=== PATIENT | female | born 2005 | race Two or more races ===

== ENCOUNTER 2025-05-10 18:22 | Emergency (ER) | payer MEDICAID, SELFPAY ==
--- NOTE | 2025-05-10 19:43 | XR_ITS ---
Examination: Complete OB ultrasound, less than 14 weeks, transabdominal Date and time of exam: May 10, 2025 1946 hours INDICATIONS: Vaginal bleeding beginning one week ago Technique: Obstetrical ultrasound images less than 14 weeks performed via transabdominal imaging Findings: Uterus 7.6 cm intrauterine gestational sac 11 mm corresponds to 5 week 6 day gestational age No pole, no cardiac activity Right ovary 3.3 cm arterial flow Left ovary 2.7 cm arterial flow IMPRESSION: Empty intrauterine gestational sac, no pole, no cardiac activity, corresponding to 5 week 6 day gestational age Recommend follow-up transvaginal pelvic sonography to assess for viability
[2025-05-10 19:44] VITALS: BP 129/79; PULSE 78; RESP 19; TEMP 37; O2SAT 100
[2025-05-10 20:35] LABS: Collection Type, Urine Voided
[2025-05-10 20:51] LABS: Bilirubin,Urine Negative (Negative); Blood,Urine Trace (Negative); Clarity,Urine Clear (Clear/Hazy); Color,Urine Lt-Yellow (Lt Yel-Yel); Glucose, Urine Trace (Negative); Ketones,Urine Negative (Negative); Leukocyte Esterase,Urine Negative (Negative); Nitrite,Urine Negative (Negative); PH,Urine 6.0 (5.0-7.0); Protein,Urine Negative (Neg - Trace); RBC,Urine < 1 /hpf (0-3); Specific Gravity,Urine 1.025 (1.001-1.035); Squamous Epithelial Cell,Urine 1 /hpf (0-5); Urobilinogen,Urine Negative mg/dL (0.0-1.0); WBC,Urine 1 /hpf (0-5)
[2025-05-10 20:55] LABS: Basophils # (Auto) 0.0 Thou/mm3 (0.0-0.2); Basophils % (Auto) 0 % (0-2.5); Eosinophils # (Auto) 0.4 Thou/mm3 (0.0-0.5); Eosinophils % (Auto) 5 % (0-10); Hematocrit 29.6 % (36.0-46.0); Hemoglobin 9.0 g/dL (12.0-16.0); Immature Granulocytes Auto 0.01 Thou/mm3 (0.00-0.00); Lymphocytes # (Auto) 3.1 Thou/mm3 (1.0-4.8); Lymphocytes % (Auto) 38 % (10-50); Mean Corpuscular HGB Conc 30.4 g/dl (31.0-37.0); Mean Corpuscular Hemoglobin 23.9 pg (25.0-35.0); Mean Corpuscular Volume 79 fL (80-100); Monocytes # (Auto) 0.6 Thou/mm3 (0.0-0.8); Monocytes % (Auto) 8 % (0-12); Neutrophils # (Auto) 4.0 Thou/mm3 (1.8-7.7); Neutrophils % (Auto) 49 % (37-80); Nucleated Red Blood Cell # 0.00 Thou/mm3 (0.00-0.00); Nucleated Red Blood Cell % 0 /100 WBC (0); Platelet Count 283 Thou/mm3 (140-440); RDW Standard Deviation 44.7 fL (36.4-46.3); Red Blood Count 3.77 Miln/mm3 (4.00-5.20); White Blood Count 8.1 Thou/mm3 (4.5-11.0)
[2025-05-10 21:15] LABS: Alanine Aminotransferase < 7 U/L (10-49); Albumin, Serum 4.4 gm/dL (3.5-5.0); Albumin/Globulin Ratio 1.6 (1.2-2.2); Alkaline Phosphatase 56 U/L (46-116); Anion Gap 8 (7-16); Aspartate Amino Transferase 16 U/L (0-34); BUN/Creatinine Ratio 7 Ratio (12-20); Bilirubin,Total 0.4 mg/dL (0.3-1.2); Blood Urea Nitrogen < 5 mg/dL (9-23); Calcium 9.0 mg/dL (8.3-10.6); Calcium (Corrected) 9.0 mg/dL (8.5-10.1); Carbon Dioxide 23.2 mMol/L (20.0-31.0); Chloride 109 mMol/L (98-107); Creatinine (Component) 0.7 mg/dL (0.6-1.3); Globulin 2.7 gm/dL (2.3-3.5); Glucose 104 mg/dL (74-106); Osmolality,Calculated 276 (275-295); Potassium 3.4 mMol/L (3.4-5.1); Sodium 140 mMol/L (136-145); Total Protein 7.1 gm/dL (5.7-8.2); eGFR > 60 See Note
[2025-05-10 21:46] LABS: Beta HCG,Quantitative 22164 mIU/mL (<5.0)
--- NOTE | 2025-05-10 23:23 | PD.EDPREG ---
ED OB Contraction Preg RMI/HPI General Chief complaint: Vaginal Bleeding Stated complaint: VAGINAL BLEEDING, PREG 4WKS Time Seen by Provider: 05/10/25 18:25 Arrival date/time: 05/10/25 18:22 This is a case of a 19-year-old female who came in in the emergency room due to vaginal bleeding today patient is 4 weeks LMP was March 28, 2025 2 para 1 patient denies any pelvic pain nausea or vomiting patient took test and positive no checkup. Limitations: no limitations Related Data Home Medications ?Medication ?Instructions ?Recorded ?Confirmed sertraline 25 mg tablet 25 mg PO DAILY 01/21/24 01/21/24 Previous Rx's ?Medication ?Instructions ?Recorded docusate sodium 100 mg capsule 100 mg PO BID #40 caps 01/21/24 (Colace) hydrocodone 5 mg-acetaminophen 325 1 tab PO Q6H PRN pain (scale score 01/21/24 mg tablet 7-10) #15 tabs ibuprofen 600 mg tablet 600 mg PO Q8H PRN pain (scale 01/21/24 score 4-6) #15 tabs vit 122-ferrous fumarate 1 tab PO DAILY #60 tabs 05/10/25 27 mg iron-folic acid 800 mcg tablet ( Multi) Allergies Allergy/AdvReac Type Severity Reaction Status Date / Time No Known Allergies Allergy Verified 05/10/25 18:25 Review of Systems Review of Systems Systems Reviewed: All systems reviewed, normal except as documented Constitutional Constitutional: Reports system reviewed and no additional complaints, except as documented and Reports as per HPI Cardiovascular Cardiovascular: Reports system reviewed and no additional complaints, except as documented and Reports as per HPI Respiratory Respiratory: Reports system reviewed and no additional complaints, except as documented and Reports as per HPI Gastrointestinal Gastrointestinal: Reports system reviewed and no additional complaints, except as documented, Reports as per HPI, Denies abdominal pain, Denies nausea and Denies vomiting Genitourinary Genitourinary: Reports system reviewed and no additional complaints, except as documented, Reports abnormal vaginal bleeding, Denies dysuria and Denies hematuria Neurologic Neurologic: Reports system reviewed and no additional complaints, except as documented and Reports as per HPI Past Medical History Past Medical History NEUROLOGIC: Negative Neurological Disorders or Seizures CARDIAC: Negative Cardiac Disorders or Congestive Heart Failure RESPIRATORY: Negative Chronic Obstructive Pulmonary Disease (COPD) GASTROINTESTINAL: Positive Gastrointestinal Disorders and Gall Bladder Disease GENITOURINARY: Negative Genitourinary Disorders or Renal Disease REPRODUCTIVE: Positive Previous Pregnancies MUSCULOSKELETAL: Negative Musculoskeletal Disorders ENDOCRINE: Negative Endocrine Disorders, Diabetes Mellitus Type 1 or Diabetes Mellitus Type 2 HEMATOLOGIC: Positive Blood Disorders and Anemia PSYCHO/SOCIAL: Positive Depression (taking meds) OTHER HISTORY: Negative Hospitalization, Autoimmune Disease, Shingles, Blood Transfusions, Blood Transfusion Reaction, Anesthesia Reactions or Cancer Family History FAMILY HISTORY: Positive Family Surgery; Negative Family Psychiatric Problems, Family Respiratory Disorders, Family Cardiac Disorders, Family Gastrointestinal Problems, Family Cancer or Family Anesthesia Reaction Social History SMOKING STATUS: Never smoker SUBSTANCE USE: does not use ED Exam General Limitations: Present no limitations General appearance: Present alert, in no apparent distress and other (Child is awake alert oriented not in distress nontoxic looking well-hydrated well-nourished) Head Head exam: Present atraumatic, normocephalic and normal inspection Eye Eye exam: Present normal appearance, PERRL and EOMI ENT ENT exam: Present normal exam, normal oropharynx and mucous membranes moist Neck Neck exam: Present normal inspection, full ROM and trachea midline; Absent tenderness, meningismus or lymphadenopathy Chest Chest inspection: Present normal inspection and symmetric chest wall rise; Absent tenderness Respiratory Respiratory exam: Present normal lung sounds bilaterally; Absent respiratory distress, wheezes, stridor, accessory muscle use or prolonged expiratory phase Cardiovascular Cardiovascular exam: Present regular rate, normal rhythm and normal heart sounds; Absent bradycardia, tachycardia, irregular rhythm, systolic murmur or diastolic murmur Abdominal Exam Abdominal exam: Present soft and normal bowel sounds; Absent distention, tenderness, guarding, rebound, rigidity, diminished bowel sounds, hyperactive bowel sounds, hypoactive bowel sounds or organomegaly Extremities Exam Extremities exam: Present normal inspection and full ROM Back Exam Back exam: Present normal inspection and full ROM Neurological Exam Neurological exam: Present alert, oriented X3, CN II-XII intact, normal gait and reflexes normal; Absent motor sensory deficit Psychiatric Psychiatric exam: Present normal affect and normal mood Skin Skin exam: Present warm, dry, intact and normal color Course Quality Measures none Orders Category Date Time Status US OB <= 14 weeks fetus Stat Exams 05/10/25 19:43 Completed ABO/RH Type Stat Lab 05/10/25 20:30 Completed Beta HCG,Quantitative Stat Lab 05/10/25 20:30 Completed CBC Stat Lab 05/10/25 20:30 Completed CMP [Comprehensive Metabolic Panel] Stat Lab 05/10/25 20:30 Completed Urinalysis Stat Lab 05/10/25 20:29 Completed Vital Signs Vital signs: Vital Signs Temperature 98.6 F 05/10/25 19:44 Pulse Rate 78 05/10/25 19:44 Respiratory Rate 19 05/10/25 19:44 Blood Pressure 129/79 05/10/25 19:44 Pulse Oximetry (%) 100 05/10/25 19:44 Oxygen Delivery Method Room Air 05/10/25 19:44 Patient oxygen saturation is 100% in room air OB/Uterine Contractions MDM Narrative MDM Narrative:: This is a case of a 19-year-old female who came in in the emergency room due to vaginal bleeding today patient is 4 weeks LMP was March 28, 2025 2 para 1 patient denies any pelvic pain nausea or vomiting patient took test and positive no checkup. Physical examination patient is awake alert oriented not in distress nontoxic looking well-hydrated well-nourished abdominal exam is benign no guarding no rebound no rigidity negative tenderness patient is not pale excellent skin turgor the rest of the physical examination and neurological exam is normal and unremarkable blood test showed no leukocytosis but with anemia hemoglobin of 9 patient already knew that she is anemic and she is already currently taking iron medication patient kidney and liver function is normal no electrolyte imbalance patient beta-hCG [id number] O+ urinalysis is normal ultrasound showed a empty intrauterine sac possible 5 weeks at this point based on my physical examination and history patient symptoms suggestive of threatened in early she was advised to return in the emergency room in 2 days for repeat pelvic ultrasound and beta-hCG the importance to see an OB internet marketing coordinator was also discussed with the patient patient will continue the multivitamins and iron for any worsening symptoms or any emergent concern return precaution in the ER was advised Patient was discharged with comfortable condition walking with stable gait. Patient verbalized no further complains explained diagnosis and answered patient question. Patient is comfortable with the proposed management plan including the need to follow up with his/her primary care physician and any specialist if applicable Discussed patient for any urgent condition or worsening sx, He/She needed to go to emergency room immediately or call 911. Patient acknowledge the responsibility to follow up as instructed and to monitor her/his symptoms. For any persistence of the symptoms for more than 3-5 days return precaution advised. Discussed the result of the test and was given printed discharge instruction Patient data External records reviewed:: [facility] previous records Clinical information provided by:: patient Social determinants that could affect healthcare access:: none (None) Patient has the following chronic illnesses:: None How is presenting disease/condition affected by chronic disease/condition?: no chronic disease Evaluation data The following diagnostics were reviewed and interpreted by me:: lab results and radiology exam(s) Lab and/or radiology exams considered but not ordered:: Reviewed Interpretation Summary: Reviewed Medications / Prescriptions Medications or Prescriptions considered but not ordered:: Given Medication administrations:: Given Consultations Consultation(s) initiated? (list below): No Diagnosis OB Contractions Differential Diagnosis: other (Threatened in early ) Most likely diagnosis given after review of the tests above:: Threatened Admission Indicated Admission indicated?: not indicated Explain why admission is indicated or not indicated:: Not indicated Admission Request Was there a request for admission?: No Admission Attestation Admission request attestation: Not indicated Disposition Plan Disposition Plan: Discharge Discharge Attestation Discharge Attestation: The patient and all family members were given an opportunity to ask questions and understood the discharge instructions. Discharge instructions specifically effects, indications for sooner follow up or return to the emergency department, and the expected course of current diagnosis. Patient condition: Stable Discharge Plan Plan Patient Disposition: HOME (Self Care) Patient condition on transfer: Stable Prescriptions/Referrals Prescriptions/Med Rec: New Multi 27-800 mg-mcg tablet 1 tab PO DAILY Qty: 60 0RF No Action sertraline 25 mg tablet 25 mg PO DAILY Patient Comments: TAKE 1 TABLET BY MOUTH EVERY DAY docusate sodium [Colace] 100 mg capsule 100 mg PO BID Qty: 40 0RF hydrocodone-acetaminophen 5-325 mg tablet 1 tab PO Q6H MDD 4 PRN (Reason: pain (scale score 7-10)) Qty: 15 0RF ibuprofen 600 mg tablet 600 mg PO Q8H PRN (Reason: pain (scale score 4-6)) Qty: 15 0RF Referrals: Phoebe Menendez FNP [Primary Care Provider] - In 1 week Problem List Clinical Impression: Threatened in early , Anemia Patient/Caregiver Discharge Instructions Education Materials: Anemia, Understanding Miscarriage ... Additional Instructions: Follow-up with your primary care physician in 2 days for reevaluation and to be referred to OB internet marketing coordinator for further evaluation and treatment of threatened in early and for your check you also need to see synthetic resin operator for your anemia continue your vitamins with iron and take it daily increase water intake keep hydrated pelvic rest no sex until cleared by your primary care physician is advised worsening symptoms or any emergent concern call 911 or go to the nearest emergency room return to the emergency room in 2 days for reevaluation if not seen by the OB internet marketing coordinator for repeat beta-hCG and pelvic ultrasound Print Language: Andorran Stand Alone Forms: Radha Award Info., Patient Portal Info Letter PA/IT BUSINESS SYSTEMS ANALYST Supervising Physician PA/IT BUSINESS SYSTEMS ANALYST Supervising Physician: Dr. Eligio Carter
== END 2025-05-10 23:36 | disposition home or self-care (01) ==
PROVIDERS: Nurse Practitioner Family; Emergency Provider Emergency Medicine; PCP Registered Nurse Community Health
DX: O20.0 Threatened abortion (principal); Z3A.01 Less than 8 weeks gestation of pregnancy
CPT/HCPCS: 36415; 76801; 80053; 81001; 84702; 85025; 86900; 86901; 99284

== ENCOUNTER 2025-05-11 13:03 | Outpatient (AMB) | payer MEDICAID, SELFPAY ==
[2025-05-11 13:18] VITALS: BP 118/77; PULSE 75; RESP 16; TEMP 36.9; O2SAT 97; BMI 30.5
--- NOTE | 2025-05-11 13:18 | GYNCLNT_ITS ---
Vital Signs 05/11/25 13:18 Height 1.57 m Height Method Stated Weight 75.353 kg Weight Measurement Method Standing Scale BMI 30.5 BP 118/77 Blood Pressure Source Automatic Cuff Blood Pressure Location Left Upper Arm Position Sitting Respiration 16 Pulse 75 Pulse Source Monitor Temp 98.4 F Temp Source Oral Pulse Oximetry (%) 97 Oxygen Delivery Method Room Air Allergies/Home Meds Allergies & Medications Allergies No Known Allergies Allergy (Verified 05/11/25 13:20) Medication Reconciliation docusate sodium 100 mg capsule (Colace) 100 mg PO BID #40 caps 01/21/24 [Rx Confirmed 05/11/25] hydrocodone 5 mg-acetaminophen 325 mg tablet 1 tab PO Q6H PRN pain (scale score 7-10) #15 tabs 01/21/24 [Rx Confirmed 05/11/25] ibuprofen 600 mg tablet 600 mg PO Q8H PRN pain (scale score 4-6) #15 tabs 01/21/24 [Rx Confirmed 05/11/25] sertraline 25 mg tablet 25 mg PO DAILY 01/21/24 [History Confirmed 05/11/25] vit 122-ferrous fumarate 27 mg iron-folic acid 800 mcg tablet ( Multi) 1 tab PO DAILY #60 tabs 05/10/25 [Rx Confirmed 05/11/25] Intake Visit Data Collection New Patient or Established: Established Patient (seen at [facility] within 3 years) Reason for Visit:: EMERGENCY ROOM FOLLOW UP Seen by Clinical Staff ONLY (RN/MA): No Manager Massage Department Required: No Do You Feel Safe at Home: Yes Authorities Contacted: N/A PCP or OBGYN visit in last 3 months: Yes Hx Now: Yes Are you currently on any form of Control: No Last menstrual period: 03/28/25 Pain Present Currently: No Pain scale:: 0 Smoking Status Smoking Status: Never smoker Chain Person history Chain Person History Menstrual regularity: regular Flow: normal Monthly: Yes How many days does period last: 4 Age at menarche: 10 Currently sexually active: Yes [employer]: Past Medical History Past Medical History: No Hx Neurological Disorders, No Hx Cardiac Disorders, No Hx Cancer, Yes Hx Blood Disorders, Yes Hx Anemia, Yes Hx Gastrointestinal Disorders, No Hx Renal Disease, No Hx Diabetes Mellitus Type 1 and No Hx Diabetes Mellitus Type 2 Questionnaires Covid-19 Vaccine Questionnaire Has patient been vacinated for Covid-19 Have you been vacinated for Covid-19: Yes PHQ-9 PHQ-2 Over the last 2 weeks, how often have you been bothered by any of the following problems? 1. Little interest or pleasure in doing things: not at all 2. Feeling down, depressed, or hopeless: not at all Total score: 0 PHQ-9 3. Trouble falling or staying asleep, or sleeping too much: Not at all 4. Feeling tired or having little energy: Not at all 5. Poor appetite or overeating: Not at all 6. Feeling bad about yourself - or that you are a failure or have let yourself or your family down: Not at all 7. Trouble concentrating on things, such as reading the newspaper or watching television: Not at all 8. Moving or speaking so slowly that other people could have noticed? - Or the opposite - being so fidgety or restless that you have been moving around a lot more than usual: not at all 9. Thoughts that you would be better off or of hurting yourself in some way: Not at all Total score: 0 Source: Developed by Drs. Levar Mendoza, Dipti Narvaez, Cristiano Murdock and colleagues, with an educational alexander from [employer]. Depression screen completed yes Social History Living Situation History Housing: House Tobacco History Smoking Status: Never smoker Alcohol History Alcohol Intake: Never Domestic Abuse History Do You Feel Safe at Home: Yes History of Present Illness HPI Narrative Lili Zurita, a female patient, presents for ER follow-up after being seen yesterday for vaginal bleeding in early . Her last menstrual period was on March 28. The patient reports that she experienced vaginal bleeding yesterday, which has since slowed down to spotting today. She states that the bleeding stopped yesterday, and she is now only experiencing light spotting. The patient has not established care with an OB-TRUCK DR[employer] and is in the process of obtaining a referral. She mentions doing a lot of walking at work, which may be a concern given her current condition. Medical History: - Emergency room visit yesterday for vaginal bleeding in early Obstetric History: - GPAL: A0 L0 - Current : - Gestational age: 5 weeks 6 days by ultrasound - Last menstrual period: March 28, 2025 Social History: - Occupation: Patient works at a job that involves a lot of walking - ultrasound (05-10-2025): Empty intrauterine gestational sac, no pole, no cardiac activity, gestational age 5 weeks and 6 days - Serum hCG (05-10-2025): [id number] Exam General General Appearance: alert, in no apparent distress and healthy appearing Head Head exam: atraumatic Neck Neck exam: Present normal inspection and trachea midline Chest Chest inspection: Present normal inspection and symmetric chest wall rise External exam: Present normal external exam; Absent tenderness Neuro Neurological exam: Present oriented X3 Psych Psychiatric exam: Present normal affect and normal mood Office Procedures OB Clinic LOC & Office Proc's Nursing/Assessment Patient Status: Established Patient OB Clinic Nursing Assessment: Medication Reconciliation, Update PMH in EMR and Vital Signs OB Clinic Coordination of Care: Complex Care and Chronic Disease 1-5, Education Complex Pt/Fam, Consent,records obtained, informed consent, Lab and Imaging orders, Results/Orders obtained and Staff clarify orders Established Patient Charge Established Patient Point Assignment: 110 Established Patient Point Charge: EP Level 3 (80-115) Assessment & Plan Diagnosis / Problem List (1) Anemia: Status: Acute (2) Threatened in early : Status: Acute Plan Early with vaginal bleeding Assessment: Patient presented to ER yesterday with vaginal bleeding in early . [place] [address] and ultrasound revealed an empty intrauterine gestational sac with no pole or cardiac activity, corresponding to 5 weeks and 6 days gestation. Currently, patient reports decreased bleeding, now only spotting. Differential diagnosis includes normal early with bleeding vs. early miscarriage. Unable to definitively diagnose at this time due to early gestational age. Plan: - Repeat serum hCG in 72 hours (on ) - If hCG rising, schedule follow-up ultrasound - If hCG declining, diagnose as miscarriage - Provide work note for one week of leave (Saturday through saturday, return to work next Saturday) - Follow up with results on Saturday
== END 2025-05-11 13:45 | disposition home or self-care (01) ==
LOC: HODSOBC 13:03
PROVIDERS: PCP Registered Nurse Community Health; Referring Provider Registered Nurse Community Health; Supervising Provider Obstetrics & Gynecology; Visit Provider Obstetrics & Gynecology
DX: O20.0 Threatened abortion (principal); O99.011 Anemia complicating pregnancy, first trimester; Z3A.01 Less than 8 weeks gestation of pregnancy
CPT/HCPCS: 99213; G0463

== ENCOUNTER → 2025-06-04 | Outpatient (CLI) | payer MEDICAID, SELFPAY ==
--- NOTE | 2025-06-04 | XR_ITS ---
Examination: Complete OB ultrasound, less than 14 weeks, transabdominal Date and time of exam: June 04, 2025 1354 hours INDICATIONS: Early by history, empty intrauterine gestational sac no pole and no cardiac activity on ultrasound May 10, 2025 Technique: Obstetrical ultrasound images less than 14 weeks performed via transabdominal imaging Findings: A normal shaped single intrauterine gestation is present in the uterus. CRL 2.4 cm corresponds to 9 weeks 1 day gestational age Cardiac motion 169 bpm, subchorionic hemorrhage 23 x 20 x 15 mm Ultrasonographic survey of visible and placental structures unremarkable. Amniotic fluid volume appears appropriate for this estimated gestational age. Right ovary 3.7 cm arterial flow 18 x 20 mm cyst Left ovary 2.6 cm arterial flow IMPRESSION: Viable intrauterine gestation 9 weeks 1 day, consider short-term follow-up given the subchorionic hemorrhage.
== END | disposition home or self-care (01) ==
PROVIDERS: PCP Student in an Organized Health Care Education/Training Program; Referring Provider Obstetrics & Gynecology; Visit Provider Obstetrics & Gynecology
DX: O26.849 Uterine size-date discrepancy, unspecified trimester (principal); Z3A.09 9 weeks gestation of pregnancy
CPT/HCPCS: 76801

== ENCOUNTER 2025-06-29 14:28 | Outpatient (AMB) | payer MEDICAID, SELFPAY ==
[2025-06-29 14:54] VITALS: BP 126/84; PULSE 93; RESP 18; TEMP 36.5; O2SAT 98; BMI 29.9
--- NOTE | 2025-06-29 14:54 | AMB.OBINITIA ---
Vital Signs 06/29/25 14:54 Height 1.57 m Height Method Stated Weight 73.652 kg Weight Measurement Method Standing Scale BMI 29.9 BP 126/84 Blood Pressure Source Automatic Cuff Blood Pressure Location Left Upper Arm Position Sitting Respiration 18 Pulse 93 Pulse Source Monitor Temp 97.7 F Temp Source Oral Pulse Oximetry (%) 98 Oxygen Delivery Method Room Air Allergies/Home Meds Allergies & Medications Allergies No Known Allergies Allergy (Verified 06/29/25 14:55) Medication Reconciliation vit 122-ferrous fumarate 27 mg iron-folic acid 800 mcg tablet ( Multi) 1 tab PO DAILY #60 tabs 05/10/25 [Rx Confirmed 06/29/25] Intake Visit Data Collection New Patient or Established: Established Patient (seen at [facility] within 3 years) Reason for Visit:: INITIAL CARE Seen by Clinical Staff ONLY (RN/MA): No Ed Transporter Required: No Do You Feel Safe at Home: Yes Authorities Contacted: N/A PCP or OBGYN visit in last 3 months: No Hx Now: Yes Are you currently on any form of Control: No Last menstrual period: 03/28/25 Pain Present Currently: No Pain Scale Used: Coyne-Mclean/Numerical Pain scale:: 0 Smoking Status Smoking Status: Never smoker Questionnaires Covid-19 Vaccine Questionnaire Has patient been vacinated for Covid-19 Have you been vacinated for Covid-19: Yes PHQ-9 PHQ-2 Over the last 2 weeks, how often have you been bothered by any of the following problems? 1. Little interest or pleasure in doing things: not at all 2. Feeling down, depressed, or hopeless: not at all Total score: 0 PHQ-9 3. Trouble falling or staying asleep, or sleeping too much: Not at all 4. Feeling tired or having little energy: Not at all 5. Poor appetite or overeating: Not at all 6. Feeling bad about yourself - or that you are a failure or have let yourself or your family down: Not at all 7. Trouble concentrating on things, such as reading the newspaper or watching television: Not at all 8. Moving or speaking so slowly that other people could have noticed? - Or the opposite - being so fidgety or restless that you have been moving around a lot more than usual: not at all 9. Thoughts that you would be better off or of hurting yourself in some way: Not at all Total score: 0 Source: Developed by Drs. Levar Mendoza, Dipti Narvaez, Cristiano Murdock and colleagues, with an educational alexander from [employer]. Depression screen completed yes Social History Living Situation History Marital Status: Lives With: Family Housing: House Tobacco History Smoking Status: Never smoker Second Hand Smoke Exposure: No Alcohol History Alcohol Intake: Never Domestic Abuse History Do You Feel Safe at Home: Yes [employer]: Past Medical History Past Medical History: No Hx Neurological Disorders, No Hx Cardiac Disorders, No Hx Cancer, Yes Hx Blood Disorders, Yes Hx Anemia, Yes Hx Gastrointestinal Disorders, No Hx Renal Disease, No Hx Diabetes Mellitus Type 1 and No Hx Diabetes Mellitus Type 2 OB Initial Visit Menstrual History Menstrual reliability: definite Flow: normal Menstrual regularity: regular Monthly: Yes Age at menarche: 9 On control pills at conception: No Associated symptoms (LMP): Reports nausea, vomiting, fatigue and breast tenderness OB History : 2 Para: 1 # of Living Children: 1 Delivery History 1st : Child's name: THELMA date: 10/25/23 sex: male Gestational age at delivery (weeks): 41 Delivery type: vaginal weight (lbs): 3175.147 g weight (oz): 170.097 g Delivery complications: NONE History of depression before or after : No Infection History & Risk Evaluation History of STDs: none Genetic Screening & History Genetic Screening/Teratology Counseling - Includes patient, baby's father, or anyone in either family with: 1. Patient's age 35 years or older as of estimated date of delivery: No 2. Thalassemia ([place] Citizen, Russian, Mediterranean, or Background); MCV less than 80: No 3. Neural Tube Defect (Meningomyelocele, Spina Bifida, or Anencephaly): No 4. Congenital Heart Defect: No 5. Down Syndrome: No 6. Tapan-Sachs (Ashkenazi Buddhism, Cajun, Japanese Wright): No 7. Silvio Disease (Ashkenazi Buddhism): No 8. Familial Dysautonomia (Ashkenazi Buddhism): No 9. Sickle Cell Disease or Trait (): No 10. Hemophilia or other blood disorders: No 11. Muscular Dystrophy: No 12. Cystic Fibrosis: No 13. Michael's Chorea: No 14. Mental Retardation/Autism: Yes (FATHER OF BABY COUSINS) 15. Other inherited genetic or chromosomal disorder: No 16. Maternal Metabolic Disorder (EG,TYPE 1 Diabetes, PKU): No 17. Patient or baby's father had a child with defects not listed above: No 18. Recurrent loss or a stillbirth: No 19. Medications (including supplements, vitamins, herbs or otc drugs)/illicit/recreational drugs/alcohol since last menstrual period: No 20. Any other: No Infection History 1. Live with someone with TB or exposed to TB: No 2. Rash or viral illness since last menstrual period: No 3. Hepatitis B,C: No Other (see comments) Source: [employer] Review of Systems Constitutional Constitutional: Reports fatigue Gastrointestinal Gastrointestinal: Reports nausea and Reports vomiting Endocrine Endocrine: Reports fatigue Office Procedures [facility] LOC & Office Proc's Nursing/Assessment Patient Status: Established Patient OB Clinic Nursing Assessment: Medication Reconciliation, Update PMH in EMR and Vital Signs OB Clinic Coordination of Care: Complex Care and Chronic Disease 1-5, Consent,records obtained, informed consent, Education Simp Pt/Fam, 1 Ins Authorization, Lab and Imaging orders, Results/Orders obtained and Staff clarify orders Special Needs: Heart tones Established Patient Charge Established Patient Point Assignment: 150 Established Patient Point Charge: EP Level 4 (120-155) Assessment & Plan Diagnosis / Problem List (1) Supervision of high risk , unspecified, first trimester: Status: Acute
== END 2025-06-29 15:07 | disposition home or self-care (01) ==
LOC: HODSOBC 14:28
PROVIDERS: PCP Registered Nurse Community Health; Referring Provider Registered Nurse Community Health; Supervising Provider Obstetrics & Gynecology; Visit Provider Obstetrics & Gynecology
DX: O09.891 Supervision of other high risk pregnancies, first trimester (principal); O21.9 Vomiting of pregnancy, unspecified; Z3A.00 Weeks of gestation of pregnancy not specified
CPT/HCPCS: 99214; G0463

== ENCOUNTER 2025-08-04 11:23 | Outpatient (AMB) | payer MEDICAID, SELFPAY ==
[2025-08-04 11:30] VITALS: BP 103/65; PULSE 69; RESP 18; TEMP 36.3; O2SAT 98; BMI 29.6
--- NOTE | 2025-08-04 11:30 | OBCLNT_ITS ---
Vital Signs 08/04/25 11:30 Height 1.57 m Height Method Stated Weight 73.028 kg Weight Measurement Method Standing Scale BMI 29.6 BP 103/65 Blood Pressure Source Automatic Cuff Blood Pressure Location Right Upper Arm Position Sitting Respiration 18 Pulse 69 Pulse Source Monitor Temp 97.4 F Temp Source Temporal Artery Scan Pulse Oximetry (%) 98 Oxygen Delivery Method Room Air Allergies/Home Meds Allergies & Medications Allergies No Known Allergies Allergy (Verified 08/04/25 11:31) Medication Reconciliation vit 122-ferrous fumarate 27 mg iron-folic acid 800 mcg tablet ( Multi) 1 tab PO DAILY #60 tabs 05/10/25 [Rx Confirmed 08/04/25] doxylamine 10 mg-pyridoxine (vit B6) 10 mg tablet,delayed release (Diclegis) 1 tab PO QDAY 30 days #30 tabs 06/29/25 [Rx Confirmed 08/04/25] Immunizations Immunizations Flu Vaccine in the Last 12 Months: No Flu Vaccine Exclusion Criteria: No Exclusion Criteria Care OB Visit Log OB Flowsheet Initial Weight: Not Recorded Date -?-?-?-?-?-?-?-?-?-?-?-?- EGA Weight BP Alb Glu CTX Pres Fundal ht FHR Mov Dilation Station Effacement Hx Notes Visit Note 08/04/25 -?-?-?-?-?-?-?-?-?-?-?-?- 18w 3d 73.028 kg 103/65 - Lili Zurita is presenting for routine visit at 18 weeks and 3 days gestation. - She reports no nausea or vomiting at t his time. - She has started feeling movement s, which she describes as appropriate for her gestational age. - She confirms adherence to vit garcia supplementation. - She denies any concerning symptoms or complications since her last visit. Laboratory, Imaging, and Diagnostic Test Results - Date: 07/09/2025 - Hepatitis B: Negative - Hepatitis C: Negative - Syphilis (RPR): Non-reactive - Rubella: Non-immune - Blood type: O-positive - Antibody screen: Negative - HIV: Negative - Gonorrhea: Negative - Chlamydia: Negative - Hemoglobin: 10.8 g/dL - Platelets: 313 - Genetic screening: Negative Plan - AFP blood test ordered to screen for s lawrence bifida (patient has one month to complete) - Second trimester ultrasound at [facility] scheduled between 20-24 weeks (referral sent in June) - Glucose screening test for diabetes du e at 24 weeks - Continue vitamins - Follow-up appointment in 4 weeks - Work restriction letter to be provided with updated dates until her next visit BELINDA Calculator Estimated Delivery Date Method Current WG Current Estimate 01/02/26 LMP (Certain) 18w 3d Other Estimates 01/06/26 Ultrasound #1 17w 6d Comments: Laboratory, Imaging, and Diagnostic Test Results - Date: 07/09/2025 - Hepatitis B: Negative - Hepatitis C: Negative - Syphilis (RPR): Non-reactive - Rubella: Non-immune - Blood type: O-positive - Antibody screen: Negative - HIV: Negative - Gonorrhea: Negative - Chlamydia: Negative - Hemoglobin: 10.8 g/dL - Platelets: 313 - Genetic screening: Negative - Obstetric ultrasound (08/04/2025): - Gestational age: 18 weeks 3 days - gender: Female - heart rate: Present - Placenta: Normal appearance - Amniotic fluid: Normal - anatomy: Normal, fetus moving, legs and head visualized Office Procedures [facility] Clinic LOC & Office Proc's Nursing/Assessment Patient Status: Established Patient OB Clinic Nursing Assessment: Medication Reconciliation, Update PMH in EMR and Vital Signs OB Clinic Coordination of Care: Complex Care and Chronic Disease 1-5, Education Complex Pt/Fam, Consent,records obtained, informed consent, Lab and Imaging orders, Results/Orders obtained and Staff clarify orders Special Needs: Heart tones Established Patient Charge Established Patient Point Assignment: 140 Established Patient Point Charge: EP Level 4 (120-155) Assessment & Plan Diagnosis / Problem List (1) Nausea/vomiting in : Status: Acute (2) Supervision of high risk , unspecified, first trimester: Status: Acute (3) Uterine size date discrepancy, antepartum: Status: Acute Plan Problem List - Rubella non-immune - Anemia Assessment 18 weeks and 3 days intrauterine with normal development. laboratory results show mild anemia with hemoglobin of 10.8, normal platelet count of 313, negative infectious disease screening including hepatitis B, hepatitis C, syphilis, HIV, gonorrhea and chlamydia, blood type O-positive with negative antibody screen, and rubella non-immune status. Genetic screening panel completed with negative results. ultrasound demonstrates appropriate growth, normal cardiac activity, normal placental appearance and amniotic fluid volume, with patient reporting movement consistent with gestational age. Female gender confirmed on imaging. Plan - AFP blood test ordered to screen for spina bifida (patient has one month to complete) - Second trimester ultrasound at [facility] scheduled between 20-24 weeks (referral sent in June) - Glucose screening test for diabetes due at 24 weeks - Continue vitamins - Follow-up appointment in 4 weeks - Work restriction letter to be provided with updated dates until her next visit 1. Progress Reviewed gestational age, growth, and heart rate. Planned frequent visits (every 2 weeks until 36 weeks, then weekly). 2. Instructed patient to monitor movements and report decreases imm ediately. 3. Testing Counseled on routine third-trimester labs per guidelines. Discussed potential need for ultrasound or monitoring based on her risk factors. 4. Preeclampsia Precaution Educated on preeclampsia signs: severe headache, vision changes, right upper quadrant pain, sudden swelling. Advised urgent reporting of symptoms and discussed blood pressure monitoring if she is high risk. 5. Labor Precautions Reviewed labor signs: regular contractions, pelvic pressure, back pain, bleeding, or fluid leakage. Instructed to seek immediate care for these symptoms. 6. Lifestyle and Delivery Preparation Reinforced vitamins, nutrition, and safe activity. Discussed her plan, pain management, and . Advised on labor preparation (e.g., hospital bag) and expectations. 7. Psychosocial Support Assessed her emotional well-being and offered resources for mental health or parenting support.
== END 2025-08-04 11:45 | disposition home or self-care (01) ==
LOC: HODSOBC 11:23
PROVIDERS: Supervising Provider Obstetrics & Gynecology; Visit Provider Obstetrics & Gynecology
DX: O09.892 Supervision of other high risk pregnancies, second trimester (principal); O26.842 Uterine size-date discrepancy, second trimester; O21.9 Vomiting of pregnancy, unspecified; O99.012 Anemia complicating pregnancy, second trimester; Z3A.18 18 weeks gestation of pregnancy; Z67.41 Type O blood, Rh negative
CPT/HCPCS: 99214; G0463

== ENCOUNTER 2025-08-30 11:20 | Outpatient (AMB) | payer MEDICAID, SELFPAY ==
[2025-08-30 11:29] VITALS: BP 108/66; PULSE 82; RESP 16; TEMP 36.4; O2SAT 97; BMI 30.2
--- NOTE | 2025-08-30 11:29 | OBCLNT_ITS ---
Vital Signs 08/30/25 11:29 Height 1.57 m Height Method Stated Weight 74.446 kg Weight Measurement Method Standing Scale BMI 30.2 BP 108/66 Blood Pressure Source Automatic Cuff Blood Pressure Location Left Upper Arm Position Sitting Respiration 16 Pulse 82 Pulse Source Monitor Temp 97.6 F Temp Source Oral Pulse Oximetry (%) 97 Oxygen Delivery Method Room Air Allergies/Home Meds Allergies & Medications Allergies No Known Allergies Allergy (Verified 08/30/25 11:35) Medication Reconciliation vit 122-ferrous fumarate 27 mg iron-folic acid 800 mcg tablet ( Multi) 1 tab PO DAILY #60 tabs 05/10/25 [Rx Confirmed 08/30/25] doxylamine 10 mg-pyridoxine (vit B6) 10 mg tablet,delayed release (Diclegis) 1 tab PO QDAY 30 days #30 tabs 06/29/25 [Rx Confirmed 08/30/25] Immunizations Immunizations Flu Vaccine in the Last 12 Months: No Flu Vaccine Exclusion Criteria: Refused by Patient Care OB Visit Log OB Flowsheet Initial Weight: Not Recorded Date -?-?-?-?-?-?-?-?-?-?-?-?- EGA Weight BP Alb Glu CTX Pres Fundal ht FHR Mov Dilation Station Effacement Hx Notes Visit Note 08/04/25 -?-?-?-?-?-?-?-?-?-?-?-?- 18w 3d 73.028 kg 103/65 - Lili Zurita is presenting for routine visit at 18 weeks and 3 days gestation. - She reports no nausea or vomiting at t his time. - She has started feeling movement s, which she describes as appropriate for her gestational age. - She confirms adherence to vit garcia supplementation. - She denies any concerning symptoms or complications since her last visit. Laboratory, Imaging, and Diagnostic Test Results - Date: 07/09/2025 - Hepatitis B: Negative - Hepatitis C: Negative - Syphilis (RPR): Non-reactive - Rubella: Non-immune - Blood type: O-positive - Antibody screen: Negative - HIV: Negative - Gonorrhea: Negative - Chlamydia: Negative - Hemoglobin: 10.8 g/dL - Platelets: 313 - Genetic screening: Negative Plan - AFP blood test ordered to screen for s lawrence bifida (patient has one month to complete) - Second trimester ultrasound at [place] scheduled between 20-24 weeks (referral sent in June) - Glucose screening test for diabetes du e at 24 weeks - Continue vitamins - Follow-up appointment in 4 weeks - Work restriction letter to be provided with updated dates until her next visit 08/30/25 -?-?-?-?-?-?-?-?-?-?-?-?- 22w 1d 74.446 kg 108/66 absent cephalic 22 155 No contractions, LOF, VB and reports good FM. Denies STONER, VC, and epigastric pain. - Glucose tolerance test to be performed at approximately 25 weeks gestation (in 2-3 weeks, shortly before next appointment) - Await ultrasound appointment call from [place] referral - Continue vitamins - Follow up in 4 weeks after (a fter September 26) BELINDA Calculator Estimated Delivery Date Method Current WG Current Estimate 01/02/26 LMP (Certain) 22w 1d Other Estimates 01/06/26 Ultrasound #1 21w 4d Office Procedures [facility] Clinic LOC & Office Proc's Nursing/Assessment Patient Status: Established Patient OB Clinic Nursing Assessment: Medication Reconciliation, Update PMH in EMR and Vital Signs OB Clinic Coordination of Care: Complex Care and Chronic Disease 1-5, Consent,records obtained, informed consent, Education Simp Pt/Fam, 1 Ins Authorization, Lab and Imaging orders, Results/Orders obtained and Staff clarify orders Special Needs: Heart tones Established Patient Charge Established Patient Point Assignment: 150 Established Patient Point Charge: EP Level 4 (120-155) Assessment & Plan Diagnosis / Problem List (1) Uterine size date discrepancy, antepartum: Status: Acute (2) Supervision of high risk , unspecified, second trimester: Status: Acute Plan Problem List - at 22 weeks and 1 day gestation Assessment 22-week and 1-day intrauterine in a patient with negative AFP screening. heart rate is 154 bpm, which is within normal limits. Patient r eports good movement and resolution of nausea. Patient is compliant with vitamins. Plan - Glucose tolerance test to be performed at approximately 25 weeks gestation (in 2-3 weeks, shortly before next appointment) - Await ultrasound appointment call from [place] referral - Continue vitamins - Follow up in 4 weeks after New Year (after September 26) 1. Progress Reviewed gestational age (22 weeks 1 day), growth, and heart rate (154 bpm - normal). Planned frequent visits (every 4 weeks currently). 2. Instructed patient to monitor movements and report decreases immediately. 3. Testing Counseled on routine third-trimester labs per guidelines. AFP test results reviewed - negative. Glucose tolerance test ordered for 25 weeks (approximately 3 weeks from current visit). Discussed potential need for ultrasound or monitoring based on risk factors. Ultrasound referral sent to [place] - patient advised to await their call. 4. Preeclampsia Precaution Educated on preeclampsia signs: severe headache, vision changes, right upper quadrant pain, sudden swelling. Advised urgent reporting of symptoms and discussed blood pressure monitoring if high risk. 5. Labor Precautions Reviewed labor signs: regular contractions, pelvic pressure, back pain, bleeding, or fluid leakage. Instructed to seek immediate care for these symptoms. 6. Lifestyle and Delivery Preparation Reinforced vitamins (patient confirmed compliance), nutrition, and safe activity. Discussed plan, pain management, and . Advised on labor preparation (e.g., hospital bag) and expectations. 7. Psychosocial Support Assessed emotional well-being (patient reports feeling good, no nausea) and offered resources for mental health or parenting support.
== END 2025-08-30 11:53 | disposition home or self-care (01) ==
PROVIDERS: Supervising Provider Obstetrics & Gynecology; Visit Provider Obstetrics & Gynecology
DX: O09.892 Supervision of other high risk pregnancies, second trimester (principal); O26.842 Uterine size-date discrepancy, second trimester; Z3A.22 22 weeks gestation of pregnancy
CPT/HCPCS: 99214; G0463